=== PATIENT | male | born 1970 | race Caucasian/White ===

== ENCOUNTER 2020-09-20 11:19 | Emergency (ER) | payer BC ==
[~2020-09-20] VITALS: Ht 180.3 cm; Wt 129.6 kg
[2020-09-20 12:00] VITALS: BP 120/70
[2020-09-20] MEDS ORDERED: OXAZEPAM 15 MG CAP PO ONE (13:15)
--- NOTE | 2020-09-20 13:25 | REP ---
INDICATION: COVID SOB. COMPARISON: No comparison study. TECHNIQUE: Portable upright AP chest radiograph. FINDINGS: The right lateral pleural angle is excluded from the field of view. The left pleural angle is sharp. The lungs are well inflated and clear. Pulmonary vasculature is not increased. Heart is not enlarged. A fusion plate is noted in the lower cervical spine.. IMPRESSION: No active disease. Right lateral pleural angle is excluded from the field of view.. <Electronically signed by Fernando Molina > 09/20/20 [id number]
[2020-09-20] MEDS ORDERED: ONDANSETRON 4 MG ORAL DISINTEGRATING TAB PO ONE (14:00)
[2020-09-20 14:14] VITALS: O2SAT 98
[2020-09-20 14:15] LABS: BASO % 0.5 % (0.0-1.0); EOS % 0.8 % (0.0-3.0); HEMATOCRIT 45.9 % (42.0-52.0); HEMOGLOBIN 14.6 g/dl (13.5-17.5); LYMPH # 1.7 10^3/uL (1.5-5.0); LYMPH % 41.8 % (24.0-44.0); MEAN CORPUSCULAR HEMOGLOBIN 31.7 pg (27.0-33.0); MEAN CORPUSCULAR HGB CONC 31.8 g/dl (32.0-36.5); MEAN CORPUSCULAR VOLUME 99.8 fl (80.0-96.0); MONO # 0.3 10^3/uL (0.0-0.8); MONO % 6.5 % (0.0-5.0); NEUTROPHILS % 50.1 % (36.0-66.0); PLATELET COUNT, AUTOMATED 266 10^3/uL (150-450)
[2020-09-20 14:23] LABS: INR 0.99; PROTHROMBIN TIME 13.3 SECONDS (12.5-14.3)
[2020-09-20 14:24] LABS: PARTIAL THROMBOPLASTIN TIME 31.7 SECONDS (24.2-38.5)
[2020-09-20 14:49] LABS: ALBUMIN 3.5 GM/DL (3.2-5.2); ALT/SGPT 34 U/L (12-78); BILIRUBIN,DIRECT 0.3 MG/DL (0.0-0.2); BILIRUBIN,TOTAL 0.5 MG/DL (0.2-1.0); BLOOD UREA NITROGEN 13 MG/DL (7-18); CALCIUM LEVEL 8.5 MG/DL (8.5-10.1); CARBON DIOXIDE LEVEL 31 MEQ/L (21-32); CHLORIDE LEVEL 108 MEQ/L (98-107); CK-MB VALUE MASS < 1.0 NG/ML (<3.6); CPK CREATINE PHOSPHOKINASE 67 U/L (39-308); CREATININE FOR GFR 1.05 MG/DL (0.70-1.30); FREE T4 0.81 NG/DL (0.76-1.46); GLOMERULAR FILTRATION RATE > 60.0 (>56); GLUCOSE, FASTING 138 MG/DL (70-100); MB/CK RELATIVE INDEX 1.49 (< OR =4); NT-PRO BNP 52 PG/ML (<125); SODIUM LEVEL 146 MEQ/L (136-145); THYROID STIMULATING HORMONE 0.396 uIU/ML (0.358-3.740); TOTAL PROTEIN 6.8 GM/DL (6.4-8.2); TROPONIN I < 0.02 NG/ML (< 0.10)
[2020-09-20] MEDS ORDERED: OXAZ30CA2 PO (14:59)
--- NOTE | 2020-09-20 20:53 | ECGEPIP ---
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
== END 2020-09-20 15:33 | disposition home or self-care (01) ==
LOC: M ED 11:19
DX: F10.10 Alcohol abuse, uncomplicated (principal); U07.1 COVID-19; J45.909 Unspecified asthma, uncomplicated; J44.9 Chronic obstructive pulmonary disease, unspecified; I10 Essential (primary) hypertension; F41.9 Anxiety disorder, unspecified; G47.30 Sleep apnea, unspecified; Z87.891 Personal history of nicotine dependence
CPT/HCPCS: 36415; 71045; 80048; 80076; 82550; 82553; 83880; 84439; 84443; 84484; 85025; 85610; 85730; 93005; 99284; Q0162

== ENCOUNTER 2020-12-19 13:24 | Emergency (ER) | payer OTHER, BC ==
[~2020-12-19] VITALS: Ht 180.3 cm; Wt 127.3 kg
[~2020-12-19 13:24] MED LIST: OXAZ30CA2 PO
[2020-12-19] MEDS ORDERED: NS 1,000 ML IV ONE (13:45)
[2020-12-19] MEDS ORDERED: HYDR12CA (13:47)
[2020-12-19] MEDS ORDERED: BISO10TA14 (13:47)
[2020-12-19] MEDS ORDERED: TRAZ-252 (13:47)
[2020-12-19] MEDS ORDERED: PANT40TA29 (13:47)
[2020-12-19] MEDS ORDERED: FINA5TAB2 (13:47)
[2020-12-19] MEDS ORDERED: LOSA100T50 (13:47)
[2020-12-19] MEDS ORDERED: FLUO20CA22 (13:47)
[2020-12-19] MEDS ORDERED: ISOVUE-370 76% 100ML VIAL As Ordered ONE (13:52)
[2020-12-19 14:09] LABS: BASO # 0.1 10^3/uL (0.0-0.2); EOS % 0.5 % (0.0-3.0); HEMATOCRIT 47.4 % (42.0-52.0); HEMOGLOBIN 15.4 g/dl (13.5-17.5); LYMPH # 1.6 10^3/uL (1.5-5.0); LYMPH % 18.8 % (24.0-44.0); MEAN CORPUSCULAR HEMOGLOBIN 31.4 pg (27.0-33.0); MEAN CORPUSCULAR HGB CONC 32.5 g/dl (32.0-36.5); MEAN CORPUSCULAR VOLUME 96.7 fl (80.0-96.0); MONO # 0.6 10^3/uL (0.0-0.8); MONO % 7.1 % (2.0-8.0); PLATELET COUNT, AUTOMATED 302 10^3/uL (150-450); WHITE BLOOD COUNT 8.3 10^3/uL (4.0-10.0)
--- NOTE | 2020-12-19 14:17 | REP ---
INDICATION: Trauma COMPARISON: None. TECHNIQUE: Axial noncontrast images from the skull base to the thoracic inlet with coronal reformations. This CT examination was performed using the following dose reduction techniques: Automated exposure control, adjustment of mA and/or kv according to the patient's size, and use of iterative reconstruction technique. FINDINGS: Age-related atrophy and microvascular ischemic changes are appreciated. The ventricles and sulci are symmetric. Burgos-white differentiation is maintained. There is no evidence for acute intracranial hemorrhage, mass/mass effect, pathology or infarction. No extra-axial fluid collection. Calvarium is intact. Paranasal sinuses and mastoid air cells are clear. IMPRESSION: Age related atrophy and microvascular ischemic changes. No acute intracranial hemorrhage, infarction, or mass/mass effect. <Electronically signed by Parveen Underwood > 12/19/20 [id number]
--- NOTE | 2020-12-19 14:19 | REP ---
INDICATION: Trauma COMPARISON: 11/21/2018 TECHNIQUE: Axial noncontrast images from the skull base to the thoracic inlet with coronal and sagittal re-formations This CT examination was performed using the following dose reduction techniques: Automated exposure control, adjustment of mA and/or kv according to the patient's size, and use of iterative reconstruction technique. FINDINGS: Anterior fixation at C6-7 noted. Moderate/Early-advanced multilevel degenerative changes include osteophytosis with minimal disc space narrowing. Alignment is maintained. No acute fracture/compression injury or subluxation. Spinal canal appears patent. Posterior elements and spinous processes are intact. IMPRESSION: No evidence for acute pathology or trauma/injury. <Electronically signed by Parveen Underwood > 12/19/20 [id number]
--- NOTE | 2020-12-19 14:21 | REP ---
INDICATION: TRAUMA COMPARISON: None. TECHNIQUE: Axial noncontrast images through the facial bones to include the mandible with coronal and sagittal re-formations. FINDINGS: Very subtle deformity to the nasal bones suggests acute versus prior nondisplaced fracture and correlation is recommended. The osseous structures are otherwise intact and there is no evidence for further fracture or dislocation. Specifically, the bilateral zygomatic arches, and mandible including bilateral temporomandibular joints appear normal and symmetric. The sinuses and mastoid air cells are all well aerated and clear without fluid level to suggest occult trauma. The bilateral orbits including the globes and intraconal contents appear symmetric and normal. The surrounding soft tissues are grossly unremarkable. IMPRESSION: Subtle acute versus old nasal bone fracture. Otherwise, normal maxillofacial CT. <Electronically signed by Parveen Underwood > 12/19/20 1266
[2020-12-19 14:23] LABS: INR 0.97; PROTHROMBIN TIME 13.1 SECONDS (12.5-14.3)
--- NOTE | 2020-12-19 14:23 | REP ---
INDICATION: TRAUMA. COMPARISON: None. TECHNIQUE: Axial noncontrast images of the thoracic spine with coronal and sagittal reformations. FINDINGS: Thoracic vertebral bodies are intact and without acute fracture/compression injury or subluxation. Alignment and kyphosis maintained. Moderate multilevel degenerative changes with osteophytosis, endplate sclerosis and minimal disc space narrowing noted at multiple levels. IMPRESSION: Moderate age-related multilevel degenerative changes. No evidence for acute trauma/injury. <Electronically signed by Parveen Underwood > 12/19/20 [id number]
--- NOTE | 2020-12-19 14:23 | REP ---
INDICATION: TRAUMA. COMPARISON: None. TECHNIQUE: Axial noncontrast images of the lumbosacral spine from mid T12 through mid sacrum with coronal and sagittal reformations. This CT examination was performed using the following dose reduction techniques: Automated exposure control, adjustment of mA and/or kv according to the patient's size, and use of iterative reconstruction technique. FINDINGS: Alignment and lordosis maintained. Vertebral bodies are intact. There is no evidence for acute fracture/compression injury or subluxation. The spinal canal is patent. The paravertebral soft tissues are normal. Moderate multilevel degenerative changes include osteophytosis with endplate sclerosis primarily involving L3-4 which also includes vacuum phenomenon to the disc space. IMPRESSION: Moderate multilevel degenerative changes. No evidence for acute fracture/compression injury or subluxation. <Electronically signed by Parveen Underwood > 12/19/20 [id number]
[2020-12-19 14:24] LABS: PARTIAL THROMBOPLASTIN TIME 32.4 SECONDS (24.2-38.5)
--- NOTE | 2020-12-19 14:28 | REP ---
INDICATION: Trauma COMPARISON: None TECHNIQUE: Axial contrast enhanced images from the thoracic inlet to the upper abdomen using 100 ml Isovue 370 intravenous contrast material followed by CT of the abdomen and pelvis. Coronal and sagittal reformations obtained. This CT examination was performed using the following dose reduction techniques: Automated exposure control, adjustment of mA and/or kv according to the patient's size, and use of iterative reconstruction technique. FINDINGS: The bilateral lung dubon are relatively clear and without consolidation/contusion, effusion, or pneumothorax. Tracheobronchial tree is patent. Mediastinum demonstrates normal appearance of the thoracic aorta, and pulmonary vasculature without evidence for mediastinal trauma. Cardiomegaly suggested without pericardial effusion. No adenopathy. Motion artifact limits evaluation. Very subtle nondisplaced posterior left 4th 5th and 6th rib fractures cannot definitively be excluded. Lateral right 6th rib fracture noted. IMPRESSION: 1. Rib fractures as detailed above. 2. No acute mediastinal or pleuroparenchymal pathology or trauma/injury otherwise noted. <Electronically signed by Parveen Underwood > 12/19/20 [id number]
--- NOTE | 2020-12-19 14:31 | REP ---
INDICATION: Trauma. COMPARISON: None TECHNIQUE: Axial contrast-enhanced images from the lung bases to the pubic symphysis using 100 cc Isovue 370 intravenous contrast material. Coronal and sagittal reformations obtained. This CT examination was performed using the following dose reduction techniques: Automated exposure control, adjustment of mA and/or kv according to the patient's size, and the use of iterative reconstruction technique. FINDINGS: No evidence for solid organ injury. Liver, spleen, pancreas, gallbladder, bilateral adrenal glands and kidneys are essentially normal. Symmetric perinephric stranding noted and likely chronic. The enteric system is without obstruction or acute inflammatory process. Pelvis demonstrates normal bladder and age-appropriate prostate/seminal vesicles. No ascites. No free air. No adenopathy. Abdominal aorta and vasculature are normal and without evidence for injury. Musculoskeletal structures are intact and without injury. IMPRESSION: No acute abdominopelvic pathology appreciated. <Electronically signed by Parveen Underwood > 12/19/20 [id number]
[2020-12-19 14:49] LABS: ALBUMIN 4.1 GM/DL (3.2-5.2); ALT/SGPT 42 U/L (12-78); AMYLASE 44 U/L (25-115); BILIRUBIN,DIRECT < 0.1 MG/DL (0.0-0.2); BILIRUBIN,TOTAL 0.4 MG/DL (0.2-1.0); BLOOD UREA NITROGEN 15 MG/DL (7-18); CALCIUM LEVEL 9.1 MG/DL (8.5-10.1); CARBON DIOXIDE LEVEL 27 MEQ/L (21-32); CHLORIDE LEVEL 105 MEQ/L (98-107); CPK CREATINE PHOSPHOKINASE 134 U/L (39-308); CREATININE FOR GFR 0.93 MG/DL (0.70-1.30); ETHYL ALCOHOL (ETHANOL) 0.346 % (0.000-0.010); GLOMERULAR FILTRATION RATE > 60.0 (>56); GLUCOSE, FASTING 104 MG/DL (70-100); LIPASE 124 U/L (73-393); MB/CK RELATIVE INDEX 0.75 (< OR =4); POTASSIUM SERUM 3.9 MEQ/L (3.5-5.1); SODIUM LEVEL 142 MEQ/L (136-145); TOTAL PROTEIN 8.1 GM/DL (6.4-8.2); TROPONIN I < 0.02 NG/ML (< 0.10)
--- NOTE | 2020-12-19 16:00 | REP ---
INDICATION: right arm pain; trauma COMPARISON: None. TECHNIQUE: AP and lateral right forearm FINDINGS: The osseous structures and joint spaces are intact and normal. There is no evidence for acute fracture or dislocation. Surrounding soft tissues are unremarkable. No subcutaneous emphysema or radiodense foreign body. IMPRESSION: . No acute fracture or dislocation. <Electronically signed by Parveen Underwood > 12/19/20 2848
--- NOTE | 2020-12-19 16:02 | REP ---
INDICATION: right arm pain; trauma COMPARISON: None. TECHNIQUE: AP, lateral, bilateral oblique views of the right elbow. FINDINGS: Osseous structures and joint spaces are intact and there is no evidence for acute fracture or dislocation. Lateral view without evidence for joint effusion or significant swelling. IMPRESSION: No acute fracture or dislocation. <Electronically signed by Parveen Underwood > 12/19/20 0224
--- NOTE | 2020-12-19 16:02 | REP ---
INDICATION: right arm pain; trauma COMPARISON: None. TECHNIQUE: Internal rotation, external rotation, and Y view. FINDINGS: Degenerative changes to the acromioclavicular joint and ossified glenoid rim. No acute fracture or dislocation. Subacromial space is normal. No periarticular calcifications or loose bodies are identified. IMPRESSION: No acute fracture or dislocation. <Electronically signed by Parveen Underwood > 12/19/20 [id number]
--- NOTE | 2020-12-19 16:05 | REP ---
INDICATION: bilateral knee pain; trauma COMPARISON: None. TECHNIQUE: AP, lateral, bilateral oblique views of the right and left knee. FINDINGS: Right and left knee relatively symmetric age-related changes without acute fracture or dislocation. No definite effusion. IMPRESSION: Normal examination. No acute fracture or dislocation. <Electronically signed by Parveen Underwood > 12/19/20 [id number]
--- NOTE | 2020-12-19 16:07 | REP ---
INDICATION: bilateral hand pain; trauma COMPARISON: None. TECHNIQUE: AP, lateral, bilateral oblique views right and left hand. FINDINGS: Lateral view of the right hand best demonstrates soft tissue swelling primarily overlying the metacarpal bones and metacarpophalangeal region. Age-related changes are identified without obvious acute fracture or dislocation. Left hand demonstrates age-related changes without acute fracture or dislocation and no significant soft tissue swelling. IMPRESSION: Right hand swelling. No acute fracture or dislocation. <Electronically signed by Parveen Underwood > 12/19/20 7344
[2020-12-19] MEDS ORDERED: CEPHALEXIN 500 MG CAP PO ONE (16:35)
[2020-12-19] MEDS ORDERED: BACITRACIN OINTMENT 30GM TUBE TOP STA (16:45)
[2020-12-19] MEDS ORDERED: CEPH500C PO (16:53)
[2020-12-19 17:03] VITALS: BP 139/80
[2020-12-19 17:11] LABS: AMPHETAMINES LEVEL URINE POSITIVE (NEGATIVE); BARBITURATES URINE NEGATIVE (NEGATIVE); BENZODIAZEPINES URINE POSITIVE (NEGATIVE); CANNABINOIDS URINE POSITIVE (NEGATIVE); COCAINE METABOLITE URINE POSITIVE (NEGATIVE); METHADONE URINE NEGATIVE (NEGATIVE); OPIATES URINE NEGATIVE (NEGATIVE); PHENCYCLIDINE URINE NEGATIVE (NEGATIVE)
--- NOTE | 2020-12-19 19:47 | ECGEPIP ---
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
== END 2020-12-19 17:25 | disposition home or self-care (01) ==
LOC: M ED 13:24
DX: S22.49XA Multiple fractures of ribs, unspecified side, initial encounter for closed fracture (principal); S02.2XXA Fracture of nasal bones, initial encounter for closed fracture; F10.129 Alcohol abuse with intoxication, unspecified; V86.55XA Driver of 3- or 4- wheeled all-terrain vehicle (ATV) injured in nontraffic accident, initial encounter; Y92.9 Unspecified place or not applicable; Y93.89 Activity, other specified; Y99.9 Unspecified external cause status; M51.36 Other intervertebral disc degeneration, lumbar region; G31.9 Degenerative disease of nervous system, unspecified
CPT/HCPCS: 70450; 70486; 71260; 72125; 72128; 72131; 73030; 73080; 73090; 73130; 73564; 74177; 80048; 80076; 80307; 81001; 82077; 82150; 82550; 82553; 83605; 83690; 84484; 85025; 85610; 85730; 86850; 86900; 86901; 93005; 93041; 94760; 96360; 96361; 99284; Q9967

== ENCOUNTER 2021-12-08 17:37 | Emergency (ER) | payer BC ==
[~2021-12-08] VITALS: Ht 180.3 cm; Wt 118.2 kg
[~2021-12-08 17:37] MED LIST changes: +BISO10TA14; +CEPH500C PO; +FINA5TAB2; +FLUO20CA22; +HYDR12CA; +LOSA100T45; +PANT40TA29; +TRAZ-252
[2021-12-08] MEDS ORDERED: KETOROLAC 60MG 2ML VIAL IM ONE (22:50)
[2021-12-08] MEDS ORDERED: OXAZEPAM 15MG CAP PO ONE (22:50)
[2021-12-09 00:06] LABS: ALBUMIN 3.4 GM/DL (3.2-5.2); ALT/SGPT 416 U/L (12-78); BILIRUBIN,TOTAL 0.5 MG/DL (0.2-1.0); BLOOD UREA NITROGEN 16 MG/DL (7-18); CALCIUM LEVEL 8.5 MG/DL (8.5-10.1); CARBON DIOXIDE LEVEL 27 MEQ/L (21-32); CHLORIDE LEVEL 105 MEQ/L (98-107); CREATININE FOR GFR 0.75 MG/DL (0.70-1.30); ETHYL ALCOHOL (ETHANOL) 0.191 % (0.000-0.010); GLOMERULAR FILTRATION RATE > 60.0 (>56); GLUCOSE, FASTING 92 MG/DL (70-100); MAGNESIUM LEVEL 2.1 MG/DL (1.8-2.4); POTASSIUM SERUM 3.8 MEQ/L (3.5-5.1); SODIUM LEVEL 140 MEQ/L (136-145); TOTAL PROTEIN 7.1 GM/DL (6.4-8.2)
[2021-12-09 00:09] LABS: BASO # 0.1 10^3/uL (0.0-0.2); BASO % 0.9 % (0.0-1.0); EOS # 0.1 10^3/uL (0.0-0.5); EOS % 1.7 % (0.0-3.0); HEMATOCRIT 38.2 % (42.0-52.0); HEMOGLOBIN 12.1 g/dl (13.5-17.5); LYMPH # 1.8 10^3/uL (1.5-5.0); LYMPH % 31.2 % (24.0-44.0); MEAN CORPUSCULAR HEMOGLOBIN 26.5 pg (27.0-33.0); MEAN CORPUSCULAR HGB CONC 31.7 g/dl (32.0-36.5); MEAN CORPUSCULAR VOLUME 83.8 fl (80.0-96.0); MONO # 0.5 10^3/uL (0.0-0.8); MONO % 8.7 % (2.0-8.0); NEUTROPHILS # 3.3 10^3/uL (1.5-8.5); NEUTROPHILS % 56.8 % (36.0-66.0); PLATELET COUNT, AUTOMATED 305 10^3/uL (150-450); RED BLOOD COUNT 4.56 10^6/uL (4.30-6.10); WHITE BLOOD COUNT 5.8 10^3/uL (4.0-10.0)
[2021-12-09] MEDS ORDERED: hydroCHLOROthiazide 12.5 MG CAPSULE PO ONE (03:15)
[2021-12-09] MEDS ORDERED: OXAZEPAM 15MG CAP PO ONE (03:15)
[2021-12-09 08:39] VITALS: BP 162/90
== END 2021-12-09 08:41 | disposition home or self-care (01) ==
LOC: M ED 17:37
DX: F10.129 Alcohol abuse with intoxication, unspecified (principal); R51.9 Headache, unspecified; I10 Essential (primary) hypertension; J44.9 Chronic obstructive pulmonary disease, unspecified; K21.9 Gastro-esophageal reflux disease without esophagitis; Z79.899 Other long term (current) drug therapy
CPT/HCPCS: 70450; 80053; 82077; 83735; 85025; 96372; 99283; J1885

== ENCOUNTER → 2025-07-08 | Outpatient (REF) ==
[~2025-07-08] MED LIST changes: +FLUO-365; -FLUO20CA22; +HYDR12.510; -HYDR12CA; -LOSA100T45; +LOSA100T46
== END ==
LOC: M PLAIMG 16:49
PROVIDERS: ATTEND Internal Medicine
DX: R52 Pain, unspecified (principal)